=== PATIENT | female | born 1950 | race Two or more races ===

== ENCOUNTER 2021-06-19 04:20 | Day surgery (SDC) | payer OTHER ==
[2021-06-15 11:48] VITALS: BMI 32.1
[2021-06-19] MEDS ORDERED: ACETAMINOPHEN 325 MG TABLET (FP) PO PRN (15:03)
[2021-06-19] MEDS ORDERED: ONDANSETRON 4 MG/2 ML VIAL IVPUSH PRN (15:03)
[2021-06-19] MEDS ORDERED: oxyCODONE HCL 5 MG TABLET PO PRN (15:03)
[2021-06-19] MEDS ORDERED: LACTATED RINGERS SOLUTION 1,000 ML IV SCH (15:15)
[2021-06-19] MEDS ORDERED: MIDAZOLAM HCL 2 MG/2 ML SINGLE DOSE VIAL ONE (15:56)
[2021-06-19] MEDS ORDERED: LIDOCAINE HCL/PF 2% SDV 5ML VIAL ONE (15:56)
[2021-06-19] MEDS ORDERED: PROPOFOL 20 ML ONE ×2 (15:56→16:48)
[2021-06-19 19:32] VITALS: BP 163/82; PULSE 67; TEMP 98
== END 2021-06-19 20:00 | disposition home or self-care (01) ==
LOC: JASU-SURG 04:20
PROVIDERS: ATTEND Student in an Organized Health Care Education/Training Program
PROC: 0UDB8ZX Extraction of Endometrium, Via Natural or Artificial Opening Endoscopic, Diagnostic (ICD-10-PCS; 2021-06-19)
PROC: 0UB98ZX Excision of Uterus, Via Natural or Artificial Opening Endoscopic, Diagnostic (ICD-10-PCS; principal; 2021-06-19 15:00)
DX: N84.0 Polyp of corpus uteri (principal)
CPT/HCPCS: 88305-TC; 94760